=== PATIENT | female | born 1985 | race Caucasian/White ===

== ENCOUNTER 2018-03-24 10:12 | Day surgery (SDC) | payer OTHER, MEDICAID ==
[2018-03-24 11:20] LABS: ADD MAN DIFF? NO
[2018-03-24 11:39] LABS: WHITE BLOOD COUNT 6.8 10^3/ul (4.8-10.8)
[2018-03-24 11:39] LABS: BASOPHIL # 0.1 10^3/ul (0.0-0.1); BASOPHILS % 0.7 % (0.0-2.0); EOSINOPHILS # 0.2 10^3/ul (0.0-0.5); EOSINOPHILS % 2.8 % (0.0-7.0); HEMATOCRIT 36.7 % (37.0-47.0); HEMOGLOBIN 12.2 g/dl (12.0-16.0); LYMPHOCYTES # 1.2 10^3/ul (0.8-2.9); LYMPHOCYTES % 17.1 % (15.0-51.0); MEAN CORPUSCULAR HEMOGLOBIN 29.7 pg (29.0-33.0); MEAN CORPUSCULAR HGB CONC 33.2 g/dl (32.0-37.0); MEAN CORPUSCULAR VOLUME 89.3 fl (82.0-101.0); MEAN PLATELET VOLUME 10.1 fl (7.4-10.4); MONOCYTE # 0.4 10^3/ul (0.3-0.9); MONOCYTES % 5.6 % (0.0-11.0); NEUTROPHILS % 73.5 % (39.0-77.0); PLATELET COUNT 264 10^3/UL (140-415); RED BLOOD COUNT 4.11 10^6/ul (4.20-5.40); RED CELL DISTRIBUTION WIDTH 12.5 % (11.5-14.5)
[2018-03-24] MEDS ORDERED: DIPHENHYDRAMINE 50 MG INJ IV (12:00)
[2018-03-24] MEDS ORDERED: ALBUTEROL 0.083% (NEB) 2.5 MG/3 ML AMP HHN (12:00)
[2018-03-24] MEDS ORDERED: MEPERIDINE 25 MG INJ IV (12:00)
[2018-03-24] MEDS ORDERED: HYDROmorphONE 1 MG/5 ML IV SYRINGE IV ×2 (12:00)
[2018-03-24] MEDS ORDERED: FENTAnyl 50 MCG/ML VIAL IV ×2 (12:00)
[2018-03-24] MEDS ORDERED: ROPIVACAINE 0.5 % 30 ML VIAL (12:02)
[2018-03-24] MEDS ORDERED: FENTAnyl 50 MCG/ML VIAL (12:02)
[2018-03-24] MEDS ORDERED: CEFAZOLIN 1 GM INJ (13:09)
[2018-03-24] MEDS ORDERED: ROCURONIUM 50 MG INJ (13:09)
[2018-03-24] MEDS ORDERED: SUCCINYLCHOLINE CHLORIDE 100 MG/5 ML SYG IV (13:09)
[2018-03-24] MEDS ORDERED: PROPOFOL 20 ML (13:09)
[2018-03-24] MEDS ORDERED: NEOSTIGMINE 3 MG/3 ML SYRINGE (13:09)
[2018-03-24] MEDS ORDERED: LIDOCAINE 100 MG SYRINGE (13:09)
[2018-03-24] MEDS ORDERED: GLYCOPYRROLATE 0.4 MG INJ (13:09)
[2018-03-24] MEDS: ONDANSETRON 4 MG INJ IV (13:33)
[2018-03-24] MEDS: HYDROmorphONE 1 MG/5 ML IV SYRINGE IV (13:34)
[2018-03-24] MEDS: FENTAnyl 50 MCG/ML VIAL IV (13:34)
[2018-03-24] MEDS: KETOROLAC 30 MG INJ IV (13:55)
[2018-03-24] MEDS ORDERED: HYDROCODONE/APAP (5/325) TAB PO (14:00)
[2018-03-24] MEDS ORDERED: ONDANSETRON 4 MG INJ IV (14:00)
[2018-03-24] MEDS ORDERED: morphine 2 MG INJ IV (14:00)
[2018-03-24] MEDS: HYDROCODONE/APAP (5/325) TAB PO (14:28)
[2018-03-24] MEDS: METOCLOPRAMIDE 10 MG INJ IV (14:46)
== END 2018-03-24 15:31 | disposition home or self-care (01) ==
LOC: SDS 10:12
DX: Z30.2 Encounter for sterilization (principal)
CPT/HCPCS: 58600; 85025; 86850; 86900; 86901; 88302

== ENCOUNTER 2018-04-15 15:04 | Emergency (ER) | payer OTHER | END 2018-04-15 17:03 | disposition home or self-care (01) | LOC: FTE 15:04 | DX: Z48.01 Encounter for change or removal of surgical wound dressing (principal) | CPT/HCPCS: 99281; Z7502 ==